=== PATIENT | male | born 1960 | race Caucasian/White ===

== ENCOUNTER 2020-05-02 12:19 | Emergency (ER) | payer BC, OTHER ==
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
== END 2020-05-02 14:25 | disposition home or self-care (01) ==
LOC: FB.ED 12:19
DX: S01.01XA Laceration without foreign body of scalp, initial encounter (principal); S20.211A Contusion of right front wall of thorax, initial encounter; E78.00 Pure hypercholesterolemia, unspecified; I10 Essential (primary) hypertension; E66.9 Obesity, unspecified; Z68.27 Body mass index [BMI] 27.0-27.9, adult; Z79.82 Long term (current) use of aspirin; Z79.899 Other long term (current) drug therapy; V58.5XXA Driver of pick-up truck or van injured in noncollision transport accident in traffic accident, initial encounter; Y92.411 Interstate highway as the place of occurrence of the external cause
CPT/HCPCS: 12002; 36415; 70450; 71101-RT; 72070; 80048; 81001; 85025; 99284-25